=== PATIENT | female | born 1955 | race Hispanic/Latino ===

== ENCOUNTER 2018-05-19 18:43 | Emergency (ER) | payer OTHER, SELFPAY ==
[2018-05-19 19:16] LABS: Bilirubin Negative (Negative); Blood, Urine Trace (Negative); Clarity Clear (Clear); Glucose, Urine (Dipstick) 100 mg/dL (Negative); Leukocyte Trace (Negative); Nitrite Negative (Negative); Protein, Urine (Dipstick) Negative (Neg-Trace); Urobilinogen 0.2 mg/dL (0.2-1.0)
[2018-05-19 19:17] LABS: Bacteria/HPF Rare-Few HPF (None Seen); RBC/HPF 0-3 HPF (0-3); Squamous Epithelial 0-3 HPF (0-3); WBC/HPF 0-3 HPF (0-3)
[2018-05-19] MEDS ORDERED: Ondansetron ODT 4 MG TAB ONE (19:30)
[2018-05-19] MEDS ORDERED: HYDROcodone/Acetaminophen 5/325 mg Tablet ONE (19:30)
--- NOTE | 2018-05-19 20:18 | CT ---
CT ABDOMEN AND PELVIS WITH CONTRAST: History: Right sided abdominal pain. No history of stones. Comparison: None. FINDINGS: Lung bases are clear. No pericardial effusion. There is cholelithiasis. There is a hypodensity along the hepatic segment 6 in the capsule measuring fluid attenuation suggestive of a cyst. Small focus of gas within the urinary bladder. There is a punctate calculus in the inferior pole of t he left kidney measuring less than 2 mm. No ureteral calculus is present. No hydroureteronephrosis. Urinary bladder is without calculus. No perinephric stranding. 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 Noncontrast evaluation of the spleen, pancreas unremarkable. No retroperitoneal adenopathy. No free f luid within the abdomen and pelvis. IMPRESSION: 1. Punctate sub 2 mm calculus inferior pole left renal collecting system, nonobstructive. No ureteral calculus. No right sided hydroureteronephrosis or nephroureterolithiasis. 2. No acute inflammatory process within the abdomen or pelvis. 3. Normal appendix. 4. Cholelithiasis without cholecystitis. POS: [facility]
== END 2018-05-19 19:42 | disposition home or self-care (01) ==
LOC: MADERS 18:43
DX: K80.20 Calculus of gallbladder without cholecystitis without obstruction (principal); N20.0 Calculus of kidney; N39.0 Urinary tract infection, site not specified; E11.9 Type 2 diabetes mellitus without complications; I10 Essential (primary) hypertension; Z79.84 Long term (current) use of oral hypoglycemic drugs; Z79.899 Other long term (current) drug therapy
CPT/HCPCS: 74176; 81003; 81015; 87086; Q0162

== ENCOUNTER 2020-05-23 07:29 | Outpatient (CLI) | payer SELFPAY ==
[2020-05-23 14:11] LABS: Hemoglobin A1c 5.8 % (4.0-6.0)
== END 2020-05-23 07:30 | disposition home or self-care (01) ==
LOC: MADLAB 07:29
PROVIDERS: ATTEND Family Medicine
DX: E11.9 Type 2 diabetes mellitus without complications (principal)
CPT/HCPCS: 36415; 83036

== ENCOUNTER 2020-05-25 09:55 | Outpatient (CLI) | payer SELFPAY ==
[2020-05-25 11:19] LABS: #Basophils 0.1 thou/uL (0.0-0.2); #Eosinphils 0.2 thou/uL (0.0-0.7); #Lymphocytes 2.6 thou/uL (1.20-3.40); #Monocytes 0.5 thou/uL (0.11-0.59); #Neutrophils 5.1 thou/uL (1.40-6.50); %Basophils 0.9 % (0.0-1.0); %Eosinophils 2.3 % (0.0-10.0); %Lymphocytes 30.8 % (21.0-51.0); %Monocytes 5.8 % (0.0-10.0); %Neutrophils 60.2 % (42.0-75.0); Hemoglobin 11.6 g/dL (12.0-16.0); Mean Corpuscular HGB CONC 31.8 g/dL (32.0-36.0); Mean Corpuscular Volume 94.2 fL (78.0-98.0); Mean Platelet Volume 6.3 fL (7.4-10.4); Platelet Count 303 thou/uL (130-400); RBC Distribution Width 14.3 % (11.5-14.5); Red Blood Cell (RBC) Count 3.87 mill/uL (4.20-5.40); White Blood Cell (WBC) Count 8.4 thou/uL (4.8-10.8)
[2020-05-25 11:36] LABS: ALT (SGPT) 15 U/L (8-55); AST (SGOT) 16 U/L (5-34); Albumin 4.3 g/dL (3.4-4.8); Alkaline Phosphatase 109 U/L (40-110); Anion Gap 15 mmol/L (10-20); BUN (Urea Nitrogen) 14 mg/dL (9.8-20.1); Bilirubin, Total 0.3 mg/dL (0.2-1.2); Calc. Creatinine Clearance 0 mL/min (70-130); Calcium 9.4 mg/dL (7.8-10.44); Carbon Dioxide 24 mmol/L (23-31); Chloride 105 mmol/L (98-107); Globulin 4.3 g/dL (2.4-3.5); Glucose 122 mg/dL (80-115); Potassium 4.1 mmol/L (3.5-5.1); Protein, Total 8.6 g/dL (5.8-8.1); Sodium 140 mmol/L (136-145)
[2020-05-25 17:41] LABS: Free T4 (Free Thyroxine) 1.14 ng/dL (0.70-1.48)
== END 2020-05-25 09:56 | disposition home or self-care (01) ==
LOC: MADLAB 09:55
PROVIDERS: ATTEND Family Medicine
DX: E11.9 Type 2 diabetes mellitus without complications (principal); E03.8 Other specified hypothyroidism; Z86.2 Personal history of diseases of the blood and blood-forming organs and certain disorders involving the immune mechanism
CPT/HCPCS: 36415; 80053; 84439; 84443; 85025